=== PATIENT | male | born 2000 | race Caucasian/White ===

== ENCOUNTER 2022-05-27 08:24 | Emergency (ER) | payer MEDICAID ==
[~2022-05-27] VITALS: Ht 170.2 cm; Wt 75.0 kg
[2022-05-27] VITALS (7 sets, daily range): BP systolic 110–133; BP diastolic 56–86
[2022-05-27] MEDS ORDERED: OFLOXACIN0.3 % OU (10:09)
[2022-05-27] MEDS ORDERED: AMOX/K CLAV875 M1 PO (10:09)
== END 2022-05-27 10:22 | disposition home or self-care (01) ==
LOC: ED 08:24
DX: H66.91 Otitis media, unspecified, right ear (principal); H10.9 Unspecified conjunctivitis; J32.9 Chronic sinusitis, unspecified